=== PATIENT | male | born 1990 | race American Indian/Alaskan Native ===

== ENCOUNTER 2016-08-20 18:43 | Emergency (ER) | payer OTHER ==
[2016-08-20 19:08] LABS: Urine Drugs of Abuse Note Disclamer
[2016-08-20 19:17] LABS: Bilirubin,Urine NEG (Negative); Blood,Urine NEG (Negative); Ketones,Urine NEG (Negative); Leukocyte Esterase,Urine TR (Negative); Nitrite,Urine NEG (Negative); Protein,Urine <15 mg/dL mg/dL (Negative)
[2016-08-20 19:23] LABS: Basophils % (Auto) 0.4 % (0.0-1.8); Eosinophils % (Auto) 1.3 % (0.0-4.3); Hematocrit 45.6 % (35.5-45.6); Hemoglobin 14.9 gm/dl (11.8-15.2); Mean Corpuscular HGB Conc 33 % (32-34); Mean Corpuscular Hemoglobin 28 pg (28-32); Mean Corpuscular Volume 84 fl (84-94); Platelet Count 134 K/mm3 (140-440); Red Blood Count 5.41 M/mm3 (3.65-5.03); Red Cell Distribution Width 14.3 % (13.2-15.2); White Blood Count 7.3 K/mm3 (4.5-11.0)
[2016-08-20 19:28] LABS: Anion Gap 20 mmol/L; BUN/Creatinine Ratio 14.54; Blood Urea Nitrogen 16 mg/dL (9-20); Calcium 9.5 mg/dL (8.4-10.2); Carbon Dioxide 26 mmol/L (22-30); Chloride 99.4 mmol/L (98-107); Glucose 96 mg/dL (75-100); Potassium 4.3 mmol/L (3.6-5.0); Sodium 141 mmol/L (137-145)
--- NOTE | 2016-08-21 00:23 | Emergency Department Report ---
HPI - General Chief Complaint: Psych Time Seen by Provider: 08/21/16 00:08 - HPI HPI: This is a 26-year-old Afro-Greek male who presents to the emergency department, dropped off by a friend, in order to try and get some help. The patient says that he was told by his friends that he has been "acting weird" that includes getting into a lot of fights and "they say that I have been talking crazy." Patient does admit to some suicidal ideations. He denies any auditory or visual hallucinations but says that he can't get his "thoughts under control." He has a past medical history of bipolar disorder and depression. He is on Depakote, Celexa and "another antianxiety medication." He denies any illicit drug use. ED Past Medical Hx - Past Medical History Previous Medical History?: Yes Hx Psychiatric Treatment: Yes (anxiety, dpression, bipolar) Additional medical history: Anxiety - Surgical History Past Surgical History?: No - Social History Smoking Status: Current Every Day Smoker Substance Use Type: Alcohol, Marijuana - Medications Home Medications: Home Medications Medication Instructions Recorded Confirmed Last Taken Type Citalopram Hydrobromide [celeXA] 20 mg PO QDAY 01/26/15 03/07/15 Unknown History clonazePAM [Klonopin] 1 mg PO BID 01/26/15 03/07/15 Unknown History hydrOXYzine PAMOATE [Vistaril] 100 mg PO BID 01/26/15 03/07/15 Unknown History Divalproex ER [DepaKOTE ER] 250 mg PO DAILY 03/07/15 03/07/15 Unknown History Haloperidol [Haldol] 1 mg PO BID 03/07/15 03/07/15 Unknown History diphenhydrAMINE [Benadryl CAP] 25 mg PO QHS PRN 03/07/15 03/07/15 Unknown History ED Review of Systems ROS: Stated complaint: DEPRESSION/SUICIDAL Other details as noted in HPI Comment: All other systems reviewed and negative Constitutional: denies: chills, fever Eyes: denies: eye pain, eye discharge, vision change ENT: denies: ear pain, throat pain Respiratory: denies: cough, shortness of breath, wheezing Cardiovascular: denies: chest pain, palpitations Gastrointestinal: denies: abdominal pain, nausea, diarrhea Genitourinary: denies: urgency, dysuria Musculoskeletal: denies: back pain, joint swelling, arthralgia Skin: denies: rash, lesions Neurological: denies: headache, weakness, paresthesias Psychiatric: anxiety, depression, suicidal thoughts. denies: auditory hallucinations, visual hallucinations, homicidal thoughts Physical Exam - Physical Exam Vital Signs: Vital Signs 08/20/16 08/21/16 18:55 00:07 Temperature 98.8 F Pulse Rate 92 H 63 Respiratory 18 18 Rate Blood Pressure 130/90 Blood Pressure 130/90 143/101 [Right] O2 Sat by Pulse 100 100 Oximetry Physical Exam: GENERAL: The patient is well-developed well-nourished. HEENT: Normocephalic. Atraumatic. Extraocular motions are intact. Patient has moist mucous membranes. Pupils equal reactive to light bilaterally. NECK: Supple. Trachea is mid line. CHEST/LUNGS: Clear to auscultation. There is no respiratory distress noted. HEART/CARDIOVASCULAR: Regular. There is no tachycardia. There is no gallop rub or murmur. ABDOMEN: Abdomen is soft, nontender. Patient has normal bowel sounds. There is no abdominal distention. SKIN: Skin is warm and dry. NEURO: The patient is awake, alert, and oriented. The patient is cooperative. The patient has no focal neurologic deficits. The patient has normal speech. MUSCULOSKELETAL: There is no tenderness or deformity. There is no limitation range of motion. There is no evidence of acute injury. PSYCH: Patient has a flat affect. ED Course Vital Signs 08/20/16 08/21/16 18:55 00:07 Temperature 98.8 F Pulse Rate 92 H 63 Respiratory 18 18 Rate Blood Pressure 130/90 Blood Pressure 130/90 143/101 [Right] O2 Sat by Pulse 100 100 Oximetry ED Medical Decision Making - Lab Data Result diagrams: 08/20/16 19:01 08/20/16 19:01 - Medical Decision Making 26-year-old male presents the emergency department on his own accord to receive some help as he has been having a 2 week history of problems controlling his thoughts, increased agitation and increased fighting, some suicidal thoughts and he does not feel as if his psychiatric conditions are being controlled with his medications currently. His labs are unremarkable did not show any etiology of his symptoms. Vital signs stable throughout his ED course. Patient was made a 1013 mostly secondary to his suicidal ideations. He is medically cleared for psychiatric placement. - Differential Diagnosis schizoaffective, schizophrenia, bipolar disorder, depression Critical Care Time: No Critical care attestation.: If time is entered above; I have spent that time in minutes in the direct care of this critically ill patient, excluding procedure time. ED Disposition Clinical Impression: Suicidal ideation, Mood disorder, History of bipolar disorder Disposition: DC/TX PSY HOSP/PSY UNIT Is pt being admited?: No Condition: Stable Referrals: PRIMARY CARE [Primary Care Provider] - 3-5 Days Time of Disposition: 00:34
--- NOTE | 2016-08-21 11:36 | Consultation ---
History of Present Illness - Reason for Consult Consult date: 08/21/16 Reason for consult: Mental Health Evaluation Requesting physician: HOLLIE MANDEL - Chief Complaint Chief complaint: "I need some help" - History of Present Psychiatric Illness This is a 26-year-old Afro-[place] male who presents to the emergency department, dropped off by a friend, in order to try and get some help. Today patient is calm and cooperative during the assessment. He stated that he have not been mentally stable in weeks. He stated that he is homeless and moved here from [facility]. Both his parent are and his life is a "problem" per the patient. He stated that he been experiencing sadness and hopeless feelings along with being suicidal for weeks. He stated he would walk into ongoing traffic to kill himself. He stated not sleeping for days prior to this admission. He denies a poor appetite. He stated that his mood has been erratic lately, so he been getting into altercation on the streets. He stated that he hear voices, but ignore them. He denies alcohol consumption, but stated that he smoke marijuana sometimes. Patient rate his depression/anxiety 7/10, with 10 being the worse. He see a psychiatrist at [place]. Patient stated that he taken Seroquel, Celexa, Depakote, and Vistaril. He denies HI's and VH's. Medications and Allergies Allergies Allergy/AdvReac Type Severity Reaction Status Date / Time No Known Allergies Allergy Verified 08/04/15 10:30 Home Medications Medication Instructions Recorded Confirmed Last Taken Type Citalopram Hydrobromide [celeXA] 20 mg PO QDAY 01/26/15 03/07/15 Unknown History clonazePAM [Klonopin] 1 mg PO BID 01/26/15 03/07/15 Unknown History hydrOXYzine PAMOATE [Vistaril] 100 mg PO BID 01/26/15 03/07/15 Unknown History Divalproex ER [DepaKOTE ER] 250 mg PO DAILY 03/07/15 03/07/15 Unknown History Haloperidol [Haldol] 1 mg PO BID 03/07/15 03/07/15 Unknown History diphenhydrAMINE [Benadryl CAP] 25 mg PO QHS PRN 03/07/15 03/07/15 Unknown History Past psychiatric history - Past Medical History Past Medical History: No medical history Past Surgical History: No surgical history - past Psychiatric treatment and history Psych: Bipolar, Depression, Schizophrenia psychiatric treatment history: [facility] in 2015. Sister - Bipolar, Brother - Schizophrenia - Social History Social history: other (12th grade education, unemployed) Mental Status Exam - Vital signs Last Vital Signs Temp 97.8 F 08/21/16 08:04 Pulse 75 08/21/16 08:04 Resp 16 08/21/16 08:06 BP 120/72 08/21/16 08:04 Pulse Ox 100 08/21/16 08:06 - Exam Narrative exam: ROS: (+) depression MSE: Appearance: calm, cooperative Behavior: good eye contact Speech: regular rate and tone Mood: "a little down" Affect: congruent to mood Thought Process: linear Thought Content: denies SI/HI's and VH's Motor Activity: lying in the bed Cognition: a/ox 3 Insight: fair Judgment: fair Results Result Diagrams: 08/20/16 19:01 08/20/16 19:01 Abnormal lab results 08/20/16 08/20/16 Range/Units 19:01 19:01 RBC 5.41 H (3.65-5.03) M/mm3 Plt Count 134 L (140-440) K/mm3 Salicylates < 0.3 L (2.8-20.0) mg/dL All other labs normal. Assessment and Plan Assessment and plan: Impression: MDD serve type with psy feature. This is a 26-year-old Afro- [place] male who presents to the emergency department, dropped off by a friend , in order to try and get some help. Today patient is calm and cooperative during the assessment. He stated that he have not been mentally stable in weeks. He stated that he is homeless and moved here from [facility]. Both his parent are and his life is a "problem." He stated that he been experiencing sadness and hopeless feelings along with being suicidal. He stated he walk into ongoing traffic to kill himself. He denies HI's and VH's. DD: R/O Bipolar, Schizoaffective DO Recommendation/Plan: Continue 1013 with placement to inpatient psy services. Start Seroquel 200 mg PO for mood, Zoloft 50 mg PO for depression, and Vistaril 25 mg PO BID for anxiety.
[2016-08-21 13:31] LABS: Alanine Aminotransferase 19 units/L (7-56); Alkaline Phosphatase 58 units/L (35-129)
[2016-08-21] MEDS: VISTARIL PO SCH (21:59)
[2016-08-21] MEDS: ZOLOFT PO SCH (22:00)
--- NOTE | 2016-08-22 09:22 | Progress Note ---
Subjective - Reason for Consult Consult date: 08/22/16 Reason for consult: Psychiatry Follow-up - Chief Complaint Chief complaint: "I hope a little hope" This is a 26-year-old Afro-[place]unisian male who presents to the emergency department, dropped off by a friend, in order to try and get some help. Today patient is calm and cooperative during the assessment. Patient stated that the SI's has decreased since yesterday, but still active. He stated that he is concerned about his next step in life and wish he could have made better decisions. He is adamant about about being transferred to [facility] Patient stated that his previous admission to [facility] went well. He denies HI's and AVH's. He rate his depression 7/10, with 10 being the worse. Patient stated that he a "little drowsy." Patient denies any other side effects of his medications. Mental Status Exam - Vital signs Last Vital Signs Temp 97.7 F 08/22/16 08:00 Pulse 91 H 08/22/16 08:00 Resp 14 08/22/16 08:40 BP 114/78 08/22/16 08:00 Pulse Ox 98 08/22/16 08:40 - Exam Narrative exam: MSE: Appearance: calm, cooperative Behavior: good eye contact Speech: regular rate and tone Mood: "a little down" Affect: congruent to mood Thought Process: linear Thought Content: denies SI/HI's and VH's Motor Activity: lying in the bed Cognition: a/ox 3 Insight: fair Judgment: fair Assessment and Plan Impression: MDD serve type with psy feature. He denies HI's and VH's. Today patient is calm and cooperative during the assessment. Patient stated that the SI's has decreased since yesterday, but still active. He stated that he is concerned about his next step in life and wish he could have made better decisions. Patient denies HI's and AVH's. Recommendation/Plan: Continue 1013 with placement to inpatient psy services. Continue Seroquel 200 mg PO for mood and Zoloft 50 mg PO for depression. Modified Vistaril to 25 mg PO BID for anxiety.
[2016-08-22] MEDS: VISTARIL PO SCH ×3 (12:15→22:08)
[2016-08-22] MEDS: ZOLOFT PO SCH (22:08)
[2016-08-23] MEDS: VISTARIL PO SCH ×2 (10:01→22:31)
--- NOTE | 2016-08-23 17:24 | Progress Note ---
Subjective - Reason for Consult Consult date: 08/23/16 Reason for consult: psychiatric follow up - Chief Complaint Chief complaint: "I would still go out and get hit by something" This is a 26-year-old Afro-[place] male who presented to the emergency department, dropped off by a friend, in order to try and get some help. Today patient is calm and cooperative during the assessment. Patient stated that the suicidal thoughts are still active. He is adamant about about being transferred to [facility]. Patient stated that his previous admission to [facility] went well. He denies HI's and AVH's. He reports depression and crying episodes. Patient denies any other side effects of his medications. Mental Status Exam - Vital signs Last Vital Signs Temp 97.9 F 08/23/16 07:44 Pulse 90 08/23/16 07:44 Resp 18 08/23/16 09:25 BP 119/85 08/23/16 07:44 Pulse Ox 100 08/23/16 07:44 - Exam Narrative exam: MSE: Appearance: calm, cooperative Behavior: good eye contact Speech: regular rate and tone Mood: depressed Affect: congruent to mood Thought Process: linear Thought Content: denies SI/HI's and VH's Motor Activity: within normal limits Cognition: a/ox 3 Insight: fair Judgment: fair Assessment and Plan Impression: MDD serve type with psy features. He denies HI's and VH's. Today patient is calm and cooperative during the assessment. Continues to have suicidal thoughts and plan to walk in traffic Recommendation/Plan: Continue 1013 with placement to inpatient psy services. Continue Seroquel 200 mg PO for mood and add 50mg qam and Zoloft 50 mg PO for depression. Modified Vistaril to 25 mg PO BID for anxiety.
[2016-08-23] MEDS: ZOLOFT PO SCH (22:31)
[2016-08-23] MEDS ORDERED: NACL 0.9% 1000 ML 1,000 ML ONE (23:26)
[2016-08-23] MEDS ORDERED: NACL 0.9% 1000 ML 1,000 ML IV ONE (23:40)
[2016-08-24] MEDS ORDERED: TYLENOL ONE (00:30)
[2016-08-24] MEDS ORDERED: TYLENOL PO ONE (00:34)
--- NOTE | 2016-08-24 09:25 | Progress Note ---
Subjective - Reason for Consult Consult date: 08/24/16 Reason for consult: Psychiatry Follow-up - Chief Complaint Chief complaint: "I am still suicidal" This is a 26-year-old Afro-[place] male who presented to the emergency department, dropped off by a friend, in order to try and get some help. Today patient is calm and cooperative during the assessment. Patient stated that he is still suicidal without a plan. He stated that he is ready to go to [facility]. He stated, "I want some help really bad for my mental issues." He denies HI's and AVH's. He rate his depression 7/10, with 10 being the worse. He denies a poor appetite and sleep disturbance. Mental Status Exam - Vital signs Last Vital Signs Temp 97.6 F 08/24/16 00:05 Pulse 67 08/24/16 00:43 Resp 18 08/24/16 00:43 BP 131/85 08/24/16 00:43 Pulse Ox 100 08/24/16 00:43 - Exam Narrative exam: MSE: Appearance: calm, cooperative Behavior: good eye contact Speech: regular rate and tone Mood: "okay" Affect: congruent to mood Thought Process: linear Thought Content: denies SI/HI's and VH's Motor Activity: lying in the bed Cognition: a/ox 3 Insight: fair Judgment: limited Assessment and Plan Impression: MDD serve type with psy feature. This is a 26-year-old Afro- [place] male who presented to the emergency department, dropped off by a friend , in order to try and get some help. Today patient is calm and cooperative during the assessment. Patient stated that he is still suicidal without a plan. He stated that he is ready to go to [facility]. He stated, "I want some help really bad for my mental issues." He denies HI's and AVH's. Recommendation/Plan: Continue 1013 with placement to inpatient psy services. Continue Seroquel 200 mg PO for mood and Zoloft 50 mg PO for depression, and Vistaril 25 mg PO BID for anxiety.
[2016-08-24] MEDS: VISTARIL PO SCH ×2 (10:39→22:25)
[2016-08-24 20:48] VITALS: BP 122/82
[2016-08-24] MEDS: ZOLOFT PO SCH (22:25)
== END 2016-08-25 02:00 ==
LOC: ED 18:43 → EEVIPCON 18:43 → ED 08-25 02:00
DX: R45.851 Suicidal ideations (principal); F39 Unspecified mood [affective] disorder; F31.9 Bipolar disorder, unspecified; F17.200 Nicotine dependence, unspecified, uncomplicated; F12.10 Cannabis abuse, uncomplicated
CPT/HCPCS: 36415; 80048; 80307; 81001; 84075; 84450; 84460; 85025; 96360; 99285; G0480; J7030; 80320; Q0177